=== PATIENT | male | born 1965 | race Caucasian/White ===

== ENCOUNTER 2019-01-10 09:12 | Emergency (ER) | payer BC ==
[2019-01-10 10:32] VITALS: BP 148/95
--- NOTE | 2019-01-10 11:35 | ED ---
Throat Pain/Nasal Congestion - HPI Summary HPI Summary: 53 yr old male with the complaint of right frontal headache, and right frontal sinus pain for 1.5 weeks. His pain is 8/10 at its worst and at it is better after pain meds he took earlier. He denies fever, chills. He denies runny nose. He denies post nasal drip. He denies focal weakness, numbness. He denies change in his speech, vision, hearing, gait. The patient reports that he had chest tube in right chest about three weeks ago for a pleural effusion that he does not know the etiology of. He quit smoking 7 years ago. He states he had a lot of tests and they were negative down in [place]. - History of Current Complaint Chief Complaint: UCRespiratory Time Seen by Provider: 01/10/19 10:37 - Allergies/Home Medications Allergies/Adverse Reactions: Allergies Allergy/AdvReac Type Severity Reaction Status Date / Time codeine Allergy Itching Verified 01/10/19 10:23 Home Medications: Home Medications Fluticasone/Umeclidin/Vilanter [Trelegy Ellipta 100-62.5-25] 1 puff DAILY [History Confirmed 01/10/19] Pentazocine HCl/Naloxone HCl [Pentazocine-Naloxone Tablet] 1 tab TID PRN [History Confirmed 01/10/19] tiZANidine TAB* [Zanaflex TAB*] 2 mg BID PRN 01/10/19 [History Confirmed ] traZODone TAB* [Desyrel TAB*] 150 mg PO BEDTIME 01/10/19 [History Confirmed 10/23] PMH/Surg Hx/FS Hx/Imm Hx - Surgical History Surgery Procedure, Year, and Place: Right lung collapse/pneumothorax. Traumatic injuries from fall- hardware in LEFT scapula and ribs Infectious Disease History: No Infectious Disease History: Denies: Traveled Outside the [place] in Last 30 Days - Family History Known Family History: Positive: None - Social History Occupation: Employed Full-time Alcohol Use: Daily Substance Use Type: Reports: None Smoking Status (MU): Never Smoked Tobacco Review of Systems Constitutional: Negative Positive: Other - right frontal sinus pain All Other Systems Reviewed And Are Negative: Yes Physical Exam Triage Information Reviewed: Yes Vital Signs On Initial Exam: Initial Vitals Temp Pulse Resp BP Pulse Ox 97.9 F 72 16 148/95 100 01/10/19 10:26 01/10/19 10:26 01/10/19 10:26 01/10/19 10:01/10/19 10:26 Vital Signs Reviewed: Yes Appearance: Positive: Well-Appearing, No Pain Distress Skin: Positive: Warm, Skin Color Reflects Adequate Perfusion Head/Face: Positive: Normal Head/Face Inspection Eyes: Positive: EOMI, PETROS ENT: Positive: Normal ENT inspection. Negative: Sinus tenderness Neck: Positive: Nontender Respiratory/Lung Sounds: Positive: Clear to Auscultation, Breath Sounds Present Cardiovascular: Positive: RRR. Negative: Murmur Abdomen Description: Positive: Nontender Musculoskeletal: Positive: Strength/ROM Intact Neurological: Positive: Sensory/Motor Intact, Alert, Oriented to Person Place, Time, CN Intact II-III, Normal Gait, Speech Normal Psychiatric: Positive: Normal - Sommer Coma Scale Best Eye Response: 4 - Spontaneous Best Motor Response: 6 - Obeys Commands Best Verbal Response: 5 - Oriented Coma Scale Total: 15 Diagnostics - Vital Signs Vital Signs Temp Pulse Resp BP Pulse Ox 01/10/19 10:26 97.9 F 72 16 148/95 100 - Laboratory Lab Statement: Any lab studies that have been ordered have been reviewed, and results considered in the medical decision making process. - Radiology CT BRAIN AND SINUS Radiology Interpretation Completed By: Radiologist - sinus mucosal thickening. EENT Course/Dx - Course Course Of Treatment: 53 yr old male with history of smoking and recent right chest pleural effusion and he states unknown etiology. 1.[address] brain and sinuses ordered. CT positive for mucosal sinus thickening and inflammatory changes. Will Rx with Augmentin, medrol dose robert and also norco. He states he tolerates hydrocodone well but not codeine. Disks of his CT are being sent with him to take to his doctor in [place].[id number] is the istop number - Diagnoses Provider Diagnoses: Sinusitis, Hypertension Discharge ED - Sign-Out/Discharge Documenting (check all that apply): Patient Departure All imaging exams completed and their final reports reviewed: Yes - Discharge Plan Condition: Good Disposition: HOME Prescriptions: Amoxicillin/Clavulanate TAB* [Augmentin TAB 875*] 875 mg PO BID #20 tab HYDROcodone/ACETAMIN 5-325 MG* [[facility]-325 TAB*] 1 tab PO Q6H PRN #4 tab MDD 2 PRN Reason: Pain - Moderate methylPREDNISolone [Medrol Dosepak 4 MG*] 4 mg PO .SEE ROBERT INSTRUCTION #1 robert Patient Education Materials: Sinusitis (ED), Hypertension (ED) Referrals: No Primary Care Phys,NOPCP [Primary Care Provider] - [facility] [place] [facility] [place] [facility] [place]] - Billing Disposition and Condition Condition: GOOD Disposition: Home
== END 2019-01-10 12:24 | disposition home or self-care (01) ==
LOC: UCCORT 09:12
DX: J32.9 Chronic sinusitis, unspecified (principal); I10 Essential (primary) hypertension; Z87.891 Personal history of nicotine dependence
CPT/HCPCS: 70450; 70486; 99202; G0463